=== PATIENT | female | born 1995 | race Caucasian/White ===

== ENCOUNTER 2017-06-04 07:00 | Inpatient (IN) | payer OTHER ==
[~2017-06-04 07:00] MED LIST: CITRIC ACID/SODIUM CITRATE 30 ML UNIT-DOSE CUP PO ONE; ELECTROLYTE-148 SOLN 500 ML IV ONE
[2017-06-04] MEDS ORDERED: ELECTROLYTE-148 SOLN 1,000 ML IV SCH (07:30)
[2017-06-04 08:10] VITALS: BMI 34.9
--- NOTE | 2017-06-04 09:10 | HP ---
Past Medical History - Primary Care Physician PCP:: Brittney Gomez - Admission Chief Complaint: 22 yrs , 39 .5/7 weeks, with previous c/section, IUGR suspected , requests for Repeat C/section History of Present Illness: PNC at [address] [place] [address]. Wt gain 24 lbs Work Up : O Pos, Hbsag neg, Rpr nr, Rubella pos, Quantiferon neg, Hiv neg, Lead neg ,Sickle neg ! hr [id number], , gC/Ct cultures neg, Gbs neg Pt was followed by MFM . Serial sonograms were done for growth . Last sono 05/28/17 38.4 days by early sono but 34.1 weeks by bpd, TANNER 6.6, EFw 5 '3" (2355 gm <10 % tile ) , Asymmetrical IUGR suspected, NSt reactive , BPP8/8. marginal cord insertion of placenta , Vx Repeat NST 06/03/17 reactive NT screen & Modified Sequential neg . Lo samantha & NT screen ( 5%) Obesity History Source: Patient, Medical Record Limitations to Obtaining History: No Limitations - Past Medical History LEAD COATER: No: Migraine, Seizure Cardiovascular: No: HTN, Murmur Pulmonary: No: Asthma Gastrointestinal: Yes: Constipation. No: Gastritis, GERD Hepatobiliary: No: Hepatitis A, Hepatitis B, Hepatitis C Renal/: Yes: UTI (during current ) ...: 3 ...Para: 1 (03/20/16 Primary c/section , 5'14" due to Distress [facility] ) ...Term: 1 ...: 0 ...Spon : 0 ...Induced : 1 (2013) ...Multiple Gestation: 0 ...LMP: 08/31/16 ... Weeks Gestation by Dates: 39.4 ...EDC by Dates: 06/07/17 ...EDC by Sono: 06/07/17 Heme/Onc: Yes: Anemia Infectious Disease: No: HIV, STD's, Tuberculosis Psych: No: Addictions, Anxiety, Bipolar, Depression, Panic, Psychosis, Schizophrenia Endocrine: No: Diabetes Mellitus, Hypothyroidism Additional Medical History: Injured left pinky, in splint - Past Surgical History Past Surgical History: Yes: (03/20/2016 primary c/section) Hx Myomectomy: No Hx Transabdominal Cerclage: No - Smoking History Smoking history: Never smoked Have you smoked in the past 12 months: No - Alcohol/Substance Use Hx Alcohol Use: No History of Substance Use: reports: None - Social History History of Recent Travel: No Home Medications - Allergies Allergies/Adverse Reactions: Allergies Allergy/AdvReac Type Severity Reaction Status Date / Time No Known Allergies Allergy Verified 06/04/17 08:13 - Home Medications Home Medications: Ambulatory Orders Ferrous Sulfate [Feosol] 325 mg PO DAILY 05/21/17 Vit/Iron Fumarate/FA [ Tablet] 1 each PO DAILY 05/21/17 Physical Exam - Maternity Vital Signs: Vital Signs Temperature 98.1 F 06/04/17 07:00 Pulse Rate 102 H 06/04/17 07:00 Respiratory Rate 18 06/04/17 07:00 Blood Pressure 126/73 06/04/17 07:00 O2 Sat by Pulse Oximetry (%) Selected Entries 06/04/17 07:00 Weight 210 lb Constitutional: Yes: Well Nourished, Obese Eyes: Yes: WNL HENT: Yes: WNL, Normocephalic Neck: Yes: WNL Cardiovascular: Yes: WNL, Regular Rate and Rhythm Lungs: Clear to auscultation Breast(s): Yes: WNL - Abdominal Exam/OB Fundal Height: 36 Number of Fetuses: Single Presentation: Vertex Contractions: Yes Regularity: Irregular Intensity: Unaware Monitor Mode: External Heart Rate (range): 140-150 Heart Rate Location: [facility] Category: I Accelerations: Uniform Decelerations: None - Vaginal Exam/OB Vaginal Bleediing: No Dilatation (cm): close Effacement (%): unefface Amniotic Membrane Status: Intact Presentation: Vertex/Position Station: -3 - Physical Exam Musculoskeletal: Yes: WNL Extremities: Yes: WNL. No: Calf Tenderness Edema: Yes Edema: LLE: 1+, RLE: 1+ Integumentary: Yes: Incision (pfannensteil old keloid type scar), Tattoos Deep Tendon Reflex Grade: Normal +2 ...Motor Strength: WNL Psychiatric: Yes: WNL, Alert, Oriented - Labs Lab Results: Laboratory Tests 03/20/16 03/20/16 06/03/17 11:05 11:05 16:20 WBC 10.3 H Hgb 12.8 D Hct 39.9 D Plt Count 176 D Neutrophils % 72.1 Lymphocytes % 20.6 Monocytes % 6.0 Eosinophils % 1.0 Basophils % 0.3 PT with INR INR PTT (Actin FS) 29.5 Sodium Potassium Chloride Carbon Dioxide BUN Creatinine Random Glucose Uric Acid 3.4 AST ALT 06/03/17 06/03/17 16:20 16:20 WBC Hgb Hct Plt Count Neutrophils % Lymphocytes % Monocytes % Eosinophils % Basophils % PT with INR 10.50 INR 0.93 PTT (Actin FS) Sodium 137 Potassium 4.6 Chloride 105 Carbon Dioxide 22 BUN 10 Creatinine 0.8 Random Glucose 130 H D Uric Acid AST 18 ALT 15 Hemorrhage Risk Assessment - Risk Factors Risk Score: 1 Risk Level: Medium Risk Problem List - Problems (1) with 39 completed weeks gestation Code(s): Z3A.39 - 39 WEEKS GESTATION OF (2) Previous section Code(s): Z98.891 - HISTORY OF UTERINE SCAR FROM PREVIOUS SURGERY (4) Obesity (BMI 30.0-34.9) Code(s): E66.9 - OBESITY, UNSPECIFIED Assessment/Plan 22 yrs , 39.5 weeks previous c/section , not in labor, IUGR ( asymmetrical suspected), , gbs neg , requests for Repeat c/section
[2017-06-04 10:50] LABS: VENOUS BLOOD GAS HCO3 23.1 meq/L (19-25); VENOUS PH 7.31 (7.32-7.42)
[2017-06-04] MEDS ORDERED: ONDANSETRON 4 MG/2 ML VIAL IVPUSH PRN (11:13)
[2017-06-04] MEDS: OXYTOCIN 20 UNITS in 0.9% NS 20 UNIT/1,000 ML INFUS.BAG IV SCH ×2 (11:15→18:30)
[2017-06-04] MEDS ORDERED: METHYLERGONOVINE MALEATE 0.2 MG/1 ML AMP IM PRN (11:19)
[2017-06-04] MEDS ORDERED: SENNOSIDES/DOCUSATE COMBO (SENNA PLUS) TABLET (UD) PO PRN (11:19)
[2017-06-04 11:23] LABS: ARTERIAL BLD GAS O2 SATURATION 23.9 % (90-98.9); ARTERIAL BLOOD GAS BASE EXCESS -2.2 meq/l (-2-2); ARTERIAL BLOOD GAS HCO3 25.5 meq/L (22-26); ARTERIAL BLOOD GAS pH 7.28 (7.35-7.45)
[2017-06-04 11:26] LABS: ARTERIAL BLOOD GAS PO2 16.1 mmHg (80-100)
--- NOTE | 2017-06-04 11:34 | PN ---
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 GBS neg Obese pt Intra op course uneventful . IV Ancef 2 gm prior to incision given
--- NOTE | 2017-06-04 11:41 | OP ---
Operative Note - Note: Operative Date: 06/04/17 Pre-Operative Diagnosis: 39.5 weeks , previous c/section , iUGR, obesity Operation: Repeat LFTC/Section Findings: 10.19 AM Baby Boy, Vx LOT position, 9/9, Wt 5'15" . AFluid clear Dr Karla Viveros Police Superintendent present in the room Both Tubes & ovaries normal . Skin scar keloid Intradermal Vlock suture taken for skin Surgeon: Brittney Gomez Well Testing Operator: Steve Donovan Anesthesiologist/HATCH TENDER: Master Marvin Anesthesia: Spinal Specimens Removed: Cord segment for cord blood gas. Cord blood sample. Placenta Estimated Blood Loss (mls): 500 Drains, Volume Out (mls): 100 (page out put , hillary color ) Fluid Volume Replaced (mls): 1,200 (Iv Ancef 2 gm ivpb prior to incision ) Operative Report Dictated: Yes
[2017-06-04] MEDS: IBUPROFEN 800 MG/8 ML IJ IVPB PRN ×2 (11:45→23:53)
[2017-06-04] MEDS: CEFAZOLIN 1 GM PUSH 1 GM/10 ML DISP.SYRIN IVPUSH SCH (17:11)
[2017-06-05] MEDS: CEFAZOLIN 1 GM PUSH 1 GM/10 ML DISP.SYRIN IVPUSH SCH ×2 (02:50→10:15)
[2017-06-05 08:29] LABS: BASOPHIL 0.4 % (0-2.0); EOSINOPHIL 0.9 % (0-4.5); MCH 24.7 pg (25.7-33.7); MCHC 31.9 g/dl (32.0-36.0); MEAN CELL VOLUME 77.4 fl (80-96); NEUTROPHILS 78.2 % (42.8-82.8); PLATELET COUNT 159 K/MM3 (134-434); RDW 16.1 % (11.6-15.6); WHITE BLOOD COUNT 11.7 K/mm3 (4.0-10.0)
--- NOTE | 2017-06-05 10:08 | OP ---
DATE OF OPERATION: 06/04/2017 PREOPERATIVE DIAGNOSIS: A 39.5-week , previous section, intrauterine growth restriction, obesity. OPERATION DONE: A repeat low flap transverse section. SURGEON: Brittney Gomez MD BOOT MAKER SURGEON: AVA Adams ANESTHESIOLOGIST: Master Marvin MD LITHOGRAPHIC PLATEMAKER: Jo Ann Viveros____ ANESTHESIA: Spinal. FINDINGS: This is a 22-year-old 3 para 1-0-1-1 at 39.5 weeks, not in labor, and suspected IUGR ,, vertex -3 to -4 station, and TANNER was 6.6.. Pt requests for a . PROCEDURE: Abdomen was shaved, prepped. Patient was taken to the operating room table. Spinal anesthesia was given. Glaser catheter was placed. Then, abdomen was painted and draped in the usual manner. Previous Pfannenstiel incision scar was a keloid, and the incision was made around that keloid, and the whole keloid throughout the length of the incision was excised and sent for pathology examination. Then, the scar tissue and subcutaneous tissue was incised transversely. Anterior rectus sheath was incised transversely. Bleeding points were clamped and cauterized. The rectus muscle was from the rectus sheath. The parietal peritoneum was opened vertically. Lower flap of the peritoneum was incised, and was incised transverse, and bladder was pushed down. Lower uterine segment was incised transversely. The amniotic fluid was clear, and the cord was just in front of the baby's neck. The baby was delivered at 10:19 a.m. from LOT position. was 9, 9. Baby's weight was 5 pounds 15 ounces. Cord was clamped and cut, and the baby was handed to the holistic specialist. Cord segment was given for the cord blood gases, and cord blood was collected. Placenta was removed completely with the membranes. Uterine cavity was clean. Then, the closure of the uterine incision was done in 2 layers. The first layer was a continuous locking with a Biosyn 0 suture, second layer was a continuous intermittently locking with a Biosyn 0 suture. Hemostasis was verified . Then , the bladder peritoneum also was closed with Biosyn 0 suture. Hemostasis was once again checked. Both tubes and ovaries were normal. Irrigation was done. Sponge, instrument, and needle counts were correct. The closure of the abdomen was done. Parietal peritoneum was closed with a Vicryl 0 suture. Muscles were approximated with a Vicryl 0 suture. Interrupted sutures were taken. Then, anterior rectus sheath was closed with a Vicryl 0 suture. Continuous sutures were taken. Hemostasis was checked in subcutaneous tissue. The subcutaneous tissue was approximated with 2-0 Vicryl suture, and the skin was approximated with 4-0 V-Loc suture by intradermal technique. Steri-Strips applied, pressure dressing given, blood clots were removed from the vagina, and patient was transferred to the recovery room in stable condition. Estimated blood loss was 500 mL, and her urine output was 100 mL intraoperatively. It was hillary color. She received 2 g of IV Ancef prior to the incision, and IV infusion was 1200 mL. Yany [id number] MTDD
[2017-06-05] MEDS: PRENATAL VITAMINS W/ FOLIC ACID TABLET (FP) PO SCH (10:15)
[2017-06-05] MEDS: ENOXAPARIN NA (PORCINE) 40 MG/0.4 ML DISP.SYRIN SQ SCH (10:15)
[2017-06-05] MEDS: SIMETHICONE 80 MG TAB.CHEW (FP) PO PRN ×3 (10:18→20:04)
[2017-06-05] MEDS: ACETAMINOPHEN 325 MG TABLET (FP) PO PRN ×2 (10:18→15:47)
[2017-06-05] MEDS: IBUPROFEN 600 MG TABLET (FP) PO PRN ×3 (10:18→20:04)
[2017-06-05] MEDS ORDERED: BISACODYL 10 MG SUPP.RECT RC PRN (11:19)
--- NOTE | 2017-06-05 14:23 | PN ---
Post Progress Note - Subjective Subjective: 22 yo Para 2 status post repeat , seen and evaluated. Doing well, she's out of bed to chair. Post Day: 1 Type of Delivery: Repeat C/S Vital Signs: Vital Signs Temperature 98.2 F 06/05/17 10:00 Pulse Rate 100 H 06/05/17 10:00 Respiratory Rate 20 06/05/17 10:39 Blood Pressure 115/69 06/05/17 10:00 O2 Sat by Pulse Oximetry (%) 100 06/04/17 12:10 Breast Exam: Yes: Soft Uterus: Yes: Fundus Firm Incision: Yes: Dressing dry and intact Abdomen/GI: Yes: Abdomen soft, Tolerating PO Lochia: Yes: Rubra Lochia, amount: Small Extremities: Yes: Calves non-tender Perineum: Yes: Intact Activity: Ambulating - Labs Labs: CBC WBC 11.7 K/mm3 (4.0-10.0) H 06/05/17 08:00 RBC 5.10 M/mm3 (3.60-5.2) 06/05/17 08:00 Hgb 12.6 GM/dL (10.7-15.3) 06/05/17 08:00 Hct 39.5 % (32.4-45.2) 06/05/17 08:00 MCV 77.4 fl (80-96) L 06/05/17 08:00 MCH 24.7 pg (25.7-33.7) L 06/05/17 08:00 MCHC 31.9 g/dl (32.0-36.0) L 06/05/17 08:00 RDW 16.1 % (11.6-15.6) H 06/05/17 08:00 Plt Count 159 K/MM3 (134-434) 06/05/17 08:00 MPV 10.0 fl (7.5-11.1) 06/05/17 08:00 Neutrophils % 78.2 % (42.8-82.8) 06/05/17 08:00 Lymphocytes % 12.0 % (8-40) D 06/05/17 08:00 Monocytes % 8.5 % (3.8-10.2) 06/05/17 08:00 Eosinophils % 0.9 % (0-4.5) 06/05/17 08:00 Basophils % 0.4 % (0-2.0) 06/05/17 08:00 Problem List - Problems (1) Status post repeat low transverse section Code(s): Z98.891 - HISTORY OF UTERINE SCAR FROM PREVIOUS SURGERY Assessment/Plan Status post repeat Stable Ambulation Analgesia as needed Continue routine post op care
--- NOTE | 2017-06-05 15:20 | DS ---
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 No: Distention, Vomiting ....Post : Yes: Uterus firm, Uterus non-tender, Moderate lochia rubra Breast(s): Yes: WNL Musculoskeletal: Yes: WNL Extremities: Yes: WNL. No: Calf Tenderness Edema: LLE: Trace, RLE: Trace Integumentary: Yes: Tattoos Wound/Incision: Yes: Clean/Dry, Well Approximated, Sutures Intact (intraderma sutures), Steri Strips, Open to air. No: Reddened, Bleeding, Excoriated Neurological: Yes: WNL, Alert, Oriented ...Motor Strength: WNL Psychiatric: Yes: WNL, Alert, Oriented Labs: CBC, BMP 06/05/17 08:00 Laboratory Tests 06/07/17 07:37 WBC 11.0 H Hgb 12.2 Hct 37.8 Plt Count 201 D Delivery - Delivery Section: Repeat, Low Flap Transverse (39 .5 weeks ,previous c/section IUGR) Type of Anesthesia: Spinal EBL (cc): 500 (page ouput 100 ml hillary color ) Delivery, Single - Stages of Labor Date of Delivery: 06/04/17 Time of Delivery: 10:19 Time Placenta Delivered: 10:20 Placenta: Yes: Manual Removal, Uterine Exploration - Condition of Nursing Scheduler/Design Lead Present: Yes Name: Felice Acosta Infant Gender: Male Weight: 5 lb 15 oz Position: Left, OT Total Hours ROM (Hrs/Mins): 2 minutes - 1 Minute Total Score: 9 5 Minutes Total Score: 9 - Feeding Plan Initial Plan: Elected not to breastfeed exclusively throughout hospitalization Remarks - Remarks Remarks: 22 yrs , previous c/s, IUGR suspected, requests for Repeat c/section PNC at [address] [place] [address] . GBS neg Obese pt Intra op course uneventful . IV Ancef 2 gm prior to incision given . post op course uneventful. she will rtc in 1 week for wound check post op course uneventful. discharge on 06/08/17 Discharge Summary Reason For Visit: CSECTION Current Active Problems IUGR (intrauterine growth restriction) (Acute) Obesity (BMI 30.0-34.9) (Acute) with 39 completed weeks gestation (Acute) Previous section (Acute) Status post repeat low transverse section (Acute) Condition: Stable - Instructions Diet, Activity, Other Instructions: Post Instructions DIET: Continue good diet high in protein, calcium, and iron rich foods. Drink at least eight (8) glasses of water daily in addition to other fluids. Regular diet MEDICATIONS: Continue vitamins and iron as previously directed. Motrin and Tylenol may be taken for minor discomfort. ACTIVITY: Mild to moderate exercise may be started in two (2) weeks. Take frequent rest periods. Resume normal activity after six (6) week check up. WOUND CARE OF OPERATIVE SITE: Continue use of perineal bottle until vaginal discharge stops. Keep area clean. Shower daily. Keep abdominal wound dry. Report any drainage or redness to physician. Tub baths, tampons and douches are not permitted for [address] Breast feeding & or Bottle feeding BREAST CARE: (For those that are not breast feeding): If engorgement occurs: Wear tight fitting bra. Take Tylenol or Motrin for pain. Apply cold packs (ice in bags to each breast ) FAMILY PLANNING: There are many control alternatives to pursue and they should be discussed at your first office visit. You may resume sexual activity after your six (6) week check up. (Remember, breast feeding is not a contraceptive) NEXT PHYSICIAN APPOINTMENT: Be certain to call for a one (1) week appointment, unless otherwise directed. Call Clinic or got to Emergency Dept if you have any of the following: Heavy vaginal bleeding Painful urination Leg pain Unusual odor noted to vaginal bleeding High fever Red streaking noted on breast Referrals: Brittney Gomez MD [Staff Physician] - Disposition: HOME - Home Medications Comprehensive Discharge Medication List: Ambulatory Orders Ferrous Sulfate [Feosol] 325 mg PO DAILY 05/21/17 Vit/Iron Fumarate/FA [ Tablet] 1 each PO DAILY 05/21/17 Acetaminophen [Tylenol .Regular Strength -] 500 mg PO Q4H PRN #30 tablet Ferrous Sulfate [Feosol] 325 mg PO BID ud 06/05/17 Ibuprofen [Motrin -] 600 mg PO Q4H PRN #30 tablet 06/05/17 Vitamins (Sjr) - 1 tab PO DAILY tablet 06/05/17
[2017-06-05] MEDS: oxyCODONE HCL 5 MG TABLET PO PRN (20:04)
[2017-06-05] MEDS: FERROUS SO4 325 MG TABLET (FP) PO SCH (22:25)
[2017-06-06] MEDS: IBUPROFEN 600 MG TABLET (FP) PO PRN ×3 (08:22→22:11)
[2017-06-06] MEDS: SIMETHICONE 80 MG TAB.CHEW (FP) PO PRN ×2 (08:22→22:11)
[2017-06-06] MEDS: oxyCODONE HCL 5 MG TABLET PO PRN ×3 (08:25→22:12)
--- NOTE | 2017-06-06 08:40 | PN ---
Progress Note (short form) - Note Progress Note: pod2 doing well, ambulating, passing gas CBC, BMP 06/05/17 08:00 Last Vital Signs Temp Pulse Resp BP Pulse Ox 97.8 F 92 H 18 105/53 100 06/05/17 22:00 06/05/17 22:00 06/05/17 22:00 06/05/17 22:00 06/04/17 12:10 abdomen soft, no distension, no cva incision dry. clean , healing well no calf tenderness lochia mild plan ambulate, cbc in am
[2017-06-06] MEDS: ENOXAPARIN NA (PORCINE) 40 MG/0.4 ML DISP.SYRIN SQ SCH (09:42)
[2017-06-06] MEDS: PRENATAL VITAMINS W/ FOLIC ACID TABLET (FP) PO SCH (09:42)
[2017-06-06] MEDS: FERROUS SO4 325 MG TABLET (FP) PO SCH ×2 (09:42→22:11)
[2017-06-07 08:11] LABS: BASOPHIL 0.5 % (0-2.0); EOSINOPHIL 2.8 % (0-4.5); MCH 25.4 pg (25.7-33.7); MCHC 32.4 g/dl (32.0-36.0); MEAN CELL VOLUME 78.6 fl (80-96); MEAN PLT VOLUME 10.5 fl (7.5-11.1); NEUTROPHILS 61.9 % (42.8-82.8); PLATELET COUNT 201 K/MM3 (134-434); RDW 16.5 % (11.6-15.6)
[2017-06-07] MEDS: oxyCODONE HCL 5 MG TABLET PO PRN ×2 (09:07→20:44)
[2017-06-07] MEDS: IBUPROFEN 600 MG TABLET (FP) PO PRN (09:08)
[2017-06-07] MEDS: FERROUS SO4 325 MG TABLET (FP) PO SCH ×2 (09:09→21:59)
[2017-06-07] MEDS: PRENATAL VITAMINS W/ FOLIC ACID TABLET (FP) PO SCH (09:09)
[2017-06-07] MEDS: SIMETHICONE 80 MG TAB.CHEW (FP) PO PRN (09:09)
[2017-06-07] MEDS: ENOXAPARIN NA (PORCINE) 40 MG/0.4 ML DISP.SYRIN SQ SCH (09:10)
--- NOTE | 2017-06-07 09:15 | PN ---
Progress Note (short form) - Note Progress Note: pod 3 , no c/o passing gas , voids ok CBC, BMP 06/07/17 07:37 Last Vital Signs Temp Pulse Resp BP Pulse Ox 98.7 F 102 H 20 110/60 100 06/06/17 21:24 06/06/17 21:24 06/06/17 21:24 06/06/17 21:24 06/04/17 12:10 abdomen soft, no distension, no cva incision dry, clean no calf tenderness plab ambulate , plan for d/c home in am
[2017-06-07] MEDS: ACETAMINOPHEN 325 MG TABLET (FP) PO PRN (20:43)
[2017-06-07 23:29] VITALS: TEMP 98.1
[2017-06-08] MEDS: SIMETHICONE 80 MG TAB.CHEW (FP) PO PRN ×2 (02:36→11:41)
[2017-06-08] MEDS: IBUPROFEN 600 MG TABLET (FP) PO PRN ×2 (02:36→11:39)
[2017-06-08] MEDS: oxyCODONE HCL 5 MG TABLET PO PRN (02:36)
[2017-06-08] MEDS: PRENATAL VITAMINS W/ FOLIC ACID TABLET (FP) PO SCH (10:00)
[2017-06-08] MEDS: ENOXAPARIN NA (PORCINE) 40 MG/0.4 ML DISP.SYRIN SQ SCH (10:01)
[2017-06-08] MEDS: FERROUS SO4 325 MG TABLET (FP) PO SCH (10:01)
[2017-06-08] MEDS: ACETAMINOPHEN 325 MG TABLET (FP) PO PRN (11:40)
[2017-06-08 12:18] VITALS: BP 123/71; PULSE 90
--- NOTE | 2017-06-08 12:59 | DS ---
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 Vital Signs: Vital Signs Temperature 98.1 F 06/08/17 08:40 Pulse Rate 90 06/08/17 08:40 Respiratory Rate 20 06/08/17 08:40 Blood Pressure 123/71 06/08/17 08:40 O2 Sat by Pulse Oximetry (%) 100 06/07/17 21:00 Constitutional: Yes: Well Nourished, No Distress, Calm Eyes: Yes: WNL, Conjunctiva Clear, EOM Intact HENT: Yes: WNL, Atraumatic, Normocephalic Neck: Yes: WNL, Supple, Trachea Midline Cardiovascular: Yes: WNL, Regular Rate and Rhythm Respiratory: Yes: WNL, Regular, CTA Bilaterally Gastrointestinal: Yes: WNL ...Rectal Exam: Yes: WNL Renal/: Yes: WNL ....Post : Yes: Uterus firm, Uterus non-tender, Slight lochia rubra Breast(s): Yes: WNL Musculoskeletal: Yes: WNL Extremities: Yes: WNL Edema: Yes Edema: LLE: Trace, RLE: Trace Integumentary: Yes: WNL Wound/Incision: Yes: Clean/Dry, Well Approximated, Conner Intact Neurological: Yes: WNL, Alert, Oriented ...Motor Strength: WNL Psychiatric: Yes: WNL, Alert, Oriented Labs: CBC, BMP 06/07/17 07:37 Delivery - Delivery Section: Repeat, Low Flap Transverse (39 .5 weeks ,previous c/section IUGR) Type of Anesthesia: Spinal EBL (cc): 500 (page ouput 100 ml hillary color ) Delivery, Single - Stages of Labor Date of Delivery: 06/04/17 Time of Delivery: 10:19 Time Placenta Delivered: 10:20 Placenta: Yes: Manual Removal, Uterine Exploration - Condition of Infant Rn Hospice/Tube Carrier Present: Yes Name: Felice Acosta Infant Gender: Male Weight: 5 lb 15 oz Position: Left, OT Total Hours ROM (Hrs/Mins): 2 minutes - 1 Minute Total Score: 9 5 Minutes Total Score: 9 - [place] Feeding Plan Initial Plan: Elected not to breastfeed exclusively throughout hospitalization Discharge Summary Reason For Visit: CSECTION Current Active Problems IUGR (intrauterine growth restriction) (Acute) Obesity (BMI 30.0-34.9) (Acute) with 39 completed weeks gestation (Acute) Previous section (Acute) Status post repeat low transverse section (Acute) Procedures: Principal: repeat LST c/s Condition: Stable - Instructions Diet, Activity, Other Instructions: Post Instructions DIET: Continue good diet high in protein, calcium, and iron rich foods. Drink at least eight (8) glasses of water daily in addition to other fluids. Regular diet MEDICATIONS: Continue vitamins and iron as previously directed. Motrin and Tylenol may be taken for minor discomfort. ACTIVITY: Mild to moderate exercise may be started in two (2) weeks. Take frequent rest periods. Resume normal activity after six (6) week check up. WOUND CARE OF OPERATIVE SITE: Continue use of perineal bottle until vaginal discharge stops. Keep area clean. Shower daily. Keep abdominal wound dry. Report any drainage or redness to physician. Tub baths, tampons and douches are not permitted for [address] Breast feeding & or Bottle feeding BREAST CARE: (For those that are not breast feeding): If engorgement occurs: Wear tight fitting bra. Take Tylenol or Motrin for pain. Apply cold packs (ice in bags to each breast ) FAMILY PLANNING: There are many control alternatives to pursue and they should be discussed at your first office visit. You may resume sexual activity after your six (6) week check up. (Remember, breast feeding is not a contraceptive) NEXT PHYSICIAN APPOINTMENT: Be certain to call for a one (1) week appointment, unless otherwise directed. Call Clinic or got to Emergency Dept if you have any of the following: Heavy vaginal bleeding Painful urination Leg pain Unusual odor noted to vaginal bleeding High fever Red streaking noted on breast Referrals: Brittney Gomez MD [Staff Physician] - Disposition: HOME - Home Medications Comprehensive Discharge Medication List: Ambulatory Orders Ferrous Sulfate [Feosol] 325 mg PO DAILY 05/21/17 Vit/Iron Fumarate/FA [ Tablet] 1 each PO DAILY 05/21/17 Acetaminophen [Tylenol .Regular Strength -] 500 mg PO Q4H PRN #30 tablet Ferrous Sulfate [Feosol] 325 mg PO BID ud 06/05/17 Ibuprofen [Motrin -] 600 mg PO Q4H PRN #30 tablet 06/05/17 Vitamins (Sjr) - 1 tab PO DAILY tablet 06/05/17
--- NOTE | 2017-06-08 13:01 | PN ---
Progress Note (short form) - Note Progress Note: pod 4 doing well, no c/o voids ok CBC, BMP 06/07/17 07:37 Last Vital Signs Temp Pulse Resp BP Pulse Ox 98.1 F 90 20 123/71 100 06/08/17 08:40 06/08/17 08:40 06/08/17 08:40 06/08/17 08:40 06/07/17 21:00 abdomen soft, no distension, no cva incision dry, clean no calf tendernes plan d/c home rtc 1 week
--- NOTE | 2017-06-11 13:54 | PATH ---
Surgical Pathology Report Patient Name: ADDISON GANDHI [facility]. Rec. 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 Specimen(s) Received A: OLD SCAR B: PLACENTA Clinical History , VTOP x1, 39.4 weeks gestation, previous Marginal cord insertion, SGA below 10%, TANNER 6.6 Final Diagnosis A. SKIN, OLD SCAR, EXCISION: SKIN WITH DERMAL SCAR. B. PLACENTA, DELIVERY: SMALL (373 GRAM) THIRD TRIMESTER PLACENTA WITH PARAMARGINALLY INSERTED THREE-VESSEL UMBILICAL CORD AND UNREMARKABLE PLACENTAL MEMBRANES. Electronically Signed Melquiades Olsen M.D. Gross Description A. Received in formalin labeled "old scar," is 11.5 x 0.8 cm brown, elongated portion of skin excised to depth of 1.2 cm. The epidermal surface displays a central, linear, well-healed scar. Plumber Pipe Fitting sections are submitted in one cassette. B. The specimen is received fresh labeled placenta and is a 373 gram, 12.0 x 10.5 x 4.5 cm. placenta with attached membranes and umbilical cord. The attached membranes are sandoval, translucent with focal opacities and insert marginally. The umbilical cord measures 15.5 cm. in length and averages 1.1 cm. in diameter. The cord inserts eccentrically, 1 cm. to the nearest margin. No true knots or strictures are identified. Cut surface of the umbilical cord reveals 3 vessels. The surface is bosch-blue with minimal fibrin deposition and appropriate caliber vessels. The maternal surface is red-brown and intact. Sectioning reveals red-brown, spongy parenchyma. No lesions are identified. Plumber Pipe Fitting sections are submitted in three cassettes as follows: 1- membrane rolls and umbilical cord; 2-3- full thickness sections of placenta. 06/09/201706/09/2017
== END 2017-06-08 13:30 | disposition home or self-care (01) | DRG 540 ==
LOC: JLDR 07:00 → J3W 12:45
PROVIDERS: ADMIT Obstetrics & Gynecology; ATTEND Obstetrics & Gynecology
PROC: 10D00Z1 Extraction of Products of Conception, Low, Open Approach (ICD-10-PCS; principal; 2017-06-04)
DX: O34.219 Maternal care for unspecified type scar from previous cesarean delivery (principal); O36.5930 Maternal care for other known or suspected poor fetal growth, third trimester, not applicable or unspecified; O99.214 Obesity complicating childbirth; E66.8 Other obesity; Z68.34 Body mass index [BMI] 34.0-34.9, adult; Z3A.39 39 weeks gestation of pregnancy; Z37.0 Single live birth
CPT/HCPCS: 36415; 36600; 82803; 85025; 88304-TC; 88307-TC

== ENCOUNTER 2018-04-26 18:27 | Emergency (ER) | payer OTHER ==
[2018-04-26 18:35] VITALS: BP 124/83; PULSE 98; TEMP 98.8; BMI 35.7
--- NOTE | 2018-04-26 20:48 | PDOC ---
History of Present Illness - General Chief Complaint: Pain Stated Complaint: SWELLING AND PAIN TO KNEE Time Seen by Provider: 04/26/18 20:38 History Source: Patient Exam Limitations: Clinical Condition - History of Present Illness Initial Comments: 04/26/18 20:42 Patient with no surgical past medication present with complain of pain and swelling to right knee status post twisted knee while trying to get into her car this morning. Patient reported increased pain with ambulation. Patient denies hitting knee or falling. Patient denies any other symptoms Timing/Duration: 4-6 hours Past History - Past Medical History Allergies/Adverse Reactions: Allergies Allergy/AdvReac Type Severity Reaction Status Date / Time No Known Allergies Allergy Verified 04/26/18 18:34 Home Medications: Ambulatory Orders Ferrous Sulfate [Feosol] 325 mg PO DAILY 05/21/17 Vit/Iron Fum/Folic AC [ Tablet] 1 each PO DAILY 05/21/17 Acetaminophen [Tylenol .Regular Strength -] 500 mg PO Q4H PRN #30 tablet Ferrous Sulfate [Feosol] 325 mg PO BID ud 06/05/17 Ibuprofen [Motrin -] 600 mg PO Q4H PRN #30 tablet 06/05/17 Vitamins (Sjr) - 1 tab PO DAILY tablet 06/05/17 Leg Brace [Knee Brace] 1 each MC DAILY #1 each 04/26/18 Naproxen 500 mg PO BID PRN #20 tablet 04/26/18 Asthma: No Cancer: No Cardiac Disorders: No COPD: No Diabetes: No HTN: No Seizures: No Thyroid Disease: No - Suicide/Smoking/Psychosocial Hx Smoking History: Never smoked Have you smoked in the past 12 months: No Hx Alcohol Use: No Drug/Substance Use Hx: No Substance Use Type: None Hx Substance Use Treatment: No Review of Systems - Review of Systems Able to Perform ROS?: Yes Is the patient limited Maori proficient: No Constitutional: No: Weakness Respiratory: No: Symptoms reported Cardiac (ROS): No: Symptoms Reported ABD/GI: No: Symptoms Reported Musculoskeletal: Yes: See HPI, Joint Pain (right knee), Muscle Pain (right knee) . No: Muscle Weakness All Other Systems: Reviewed and Negative *Physical Exam - Vital Signs Last Vital Signs Temp Pulse Resp BP Pulse Ox 98.8 F 98 H 18 124/83 99 04/26/18 18:32 04/26/18 18:32 04/26/18 18:32 04/26/18 18:32 04/26/18 18:32 - Physical Exam Comments: 04/26/18 20:46 GENERAL: Well developed, well nourished. Awake and alert. No acute distress. CARDIOVASCULAR: Regular rate and rhythm. No murmurs, rubs, or gallops. PULMONARY: No evidence of respiratory distress. Lungs clear to auscultation bilaterally. No wheezing, rales or rhonchi. ABDOMINAL: Soft. Non-tender. Non-distended. No rebound or guarding. No organomegaly. Normoactive bowel sounds MUSCULOSKELETAL : Moderate tenderness to medial collateral ligament. Mild tenderness to anterior patellar of right knee. Mild swelling to anterior infrapatellar region. No effusion of right knee. Negative anterior-posterior drawer tests of right knee. No bony deformities EXTREMITIES: No cyanosis. No clubbing. No edema. No calf tenderness. SKIN: Warm and dry. Normal capillary refill. No rashes. No jaundice. NEUROLOGICAL: Alert, awake, appropriate. No motor deficits in the lower extremities. Gait is normal without ataxia. PSYCHIATRIC: Cooperative. Good eye contact. Appropriate mood and affect. General Appearance: Yes: Nourished, Appropriately Dressed, Mild Distress ED Treatment Course - RADIOLOGY Radiology Studies Ordered: Category Date Time Status KNEE 3 POS-RIGHT [RAD] Stat Radiology 04/26/18 20:40 Ordered Medical Decision Making - Medical Decision Making 04/26/18 20:43 Patient with no significant past medical history present with complain of right knee pain status post twisted knee this morning. Patient reported increased pain with ambulation. Patient did not take anything for pain. Exams significant for moderate tenderness to medial collateral ligaments and anterior patellar. Mild swelling to anterior infrapatellar region. X-ray of right knee ordered. Treat based on the imaging results. 04/26/18 21:59 x-rays of right knee shows no acute pathology. symptoms likely knee strain. Patient will be discharged home on NSAIDS and knee brace with orthopedics follow -up as needed *DC/Admit/Observation/Transfer Diagnosis at time of Disposition: Strain of right knee Qualifiers: Encounter type: initial encounter Qualified Code(s): S86.911A - Strain of unspecified muscle(s) and tendon(s) at lower leg level, right leg, initial encounter - Discharge Dispostion Disposition: HOME Condition at time of disposition: Stable Decision to Admit order: No - Prescriptions Prescriptions: Leg Brace [Knee Brace] 1 each MC DAILY #1 each Naproxen 500 mg PO BID PRN #20 tablet PRN Reason: knee pain - Referrals Referrals: Ilya Renee MD [Staff Physician] - - Patient Instructions Printed Discharge Instructions: DI for Knee Pain, DI for Knee Sprain Additional Instructions: Your x-ray was normal. Take prescribed medication as needed for pain and wear prescribed knee brace daily until symptoms resolve. Follow up with preferred orthopedics if symptoms persist for more than 4 days. - Post Discharge Activity
[2018-04-26] MEDS ORDERED: IBUPROFEN 400 MG TABLET (FP) PO ONE ×2 (22:03→22:04)
== END 2018-04-26 22:07 | disposition home or self-care (01) ==
LOC: JERFT 18:27
DX: S86.811A Strain of other muscle(s) and tendon(s) at lower leg level, right leg, initial encounter (principal); V48.4XXA Person boarding or alighting a car injured in noncollision transport accident, initial encounter; Y92.488 Other paved roadways as the place of occurrence of the external cause; Y93.89 Activity, other specified; Y99.8 Other external cause status
CPT/HCPCS: 73562-TC-RT-FY; 99281-25

== ENCOUNTER 2023-05-14 17:25 | Emergency (ER) | payer OTHER ==
[2023-05-14 17:52] VITALS: BP 130/69; BMI 32.4
[2023-05-14] MEDS ORDERED: ACETAMINOPHEN 1000 MG/100 ML BAG IVPB ONE (18:21)
[2023-05-14] MEDS ORDERED: SODIUM CHLORIDE 1,000 ML IV STA (18:21)
[2023-05-14 19:35] LABS: BASO % 0.6 % (0-2.0); EOS % 3.9 % (0-4.5); HEMATOCRIT 38.8 % (32.4-45.2); HEMOGLOBIN 12.6 GM/dL (10.7-15.3); MCH 25.3 pg (25.7-33.7); MCHC 32.6 g/dl (32.0-36.0); MEAN CELL VOLUME 77.7 fl (80-96); MEAN PLT VOLUME 9.5 fl (7.5-11.1); MONO % 11.3 % (3.8-10.2); NEUT % 51.2 % (42.8-82.8); PLATELET COUNT 258 10^3/uL (134-434); RBC 4.99 M/mm3 (3.60-5.2); RDW 16.9 % (11.6-15.6); WHITE BLOOD COUNT 8.1 K/mm3 (4.0-10.0)
[2023-05-14 19:39] LABS: EPI CELLS >36 /uL (0-25.1); HYALINE CASTS 1 /uL (0-3.1); URINE APPEARANCE TURBID; URINE BACTERIA 2671 /uL (0-1359); URINE BILIRUBIN NEGATIVE (NEGATIVE); URINE COLOR YELLOW; URINE GLUCOSE (UA) NEGATIVE (NEGATIVE); URINE KETONE NEGATIVE (NEGATIVE); URINE LEUK ESTERASE 1+ (NEGATIVE); URINE NITRITE NEGATIVE (NEGATIVE); URINE PROTEIN NEGATIVE (NEGATIVE); URINE RBC 8 /uL (0-23.9); URINE UROBILINOGEN 0.2 mg/dL (0.2-1.0); URINE WBC 46 /uL (0-25.8)
[2023-05-14] MEDS ORDERED: KETOROLAC TROMETHAMINE 30 MG/1 ML VIAL IVPUSH ONE (19:51)
[2023-05-14] MEDS ORDERED: KETOROLAC TROMETHAMINE 30 MG/1 ML VIAL ONE (19:55)
[2023-05-14 20:01] LABS: POTASSIUM 4.3 mmol/L (3.5-5.1)
[2023-05-14] MEDS ORDERED: NITROFURANTOIN MONOHYD/M-CRYST 100 MG CAPSULE PO STA (20:01)
[2023-05-14] MEDS ORDERED: NITROFURANTOIN MACROCRYSTAL 50 MG CAPSULE (FP) ONE (20:06)
[2023-05-14 20:08] LABS: BILIRUBIN,TOTAL 0.2 mg/dL (0.2-1); CREATININE 0.9 mg/dL (0.55-1.3)
[2023-05-14 20:09] LABS: TOT PROT 7.6 g/dl (6.4-8.2)
[2023-05-14 20:11] LABS: ALBUMIN 3.5 g/dl (3.4-5.0)
[2023-05-14 20:12] LABS: BLOOD UREA NITROGEN 14.2 mg/dL (7-18); MAGNESIUM 1.9 mg/dL (1.8-2.4)
[2023-05-14 20:47] VITALS: PULSE 78; RESP 17; TEMP 98.1
== END 2023-05-14 20:47 | disposition home or self-care (01) ==
LOC: JER 17:25
PROC: 3E0333Z Introduction of Anti-inflammatory into Peripheral Vein, Percutaneous Approach (ICD-10-PCS; principal; 2023-05-14)
PROC: 3E0337Z Introduction of Electrolytic and Water Balance Substance into Peripheral Vein, Percutaneous Approach (ICD-10-PCS; 2023-05-14)
DX: R10.84 Generalized abdominal pain (principal); R51.9 Headache, unspecified; R35.0 Frequency of micturition; R39.15 Urgency of urination; N30.00 Acute cystitis without hematuria; Z20.822 Contact with and (suspected) exposure to COVID-19
CPT/HCPCS: 0241U-QW; 36415; 80053; 81003; 83735; 84703; 85025; 87086; 87186; 99284-25

== ENCOUNTER 2023-07-08 13:44 | Observation (INO) | payer OTHER ==
[2023-07-08] MEDS ORDERED: KETOROLAC TROMETHAMINE 30 MG/1 ML VIAL IVPUSH ONE (17:26)
[2023-07-08] MEDS ORDERED: SODIUM CHLORIDE 0.9% 500 ML INFUS.BAG IV ONE (17:26)
[2023-07-08] MEDS ORDERED: KETOROLAC TROMETHAMINE 30 MG/1 ML VIAL ONE (17:30)
[2023-07-08] MEDS ORDERED: morphine CARPU-JECT 2 MG/1 ML DISP.SYRIN IVPUSH ONE (17:36)
[2023-07-08] MEDS ORDERED: AZITHROMYCIN IVPB 500 MG in DEXTROSE 5%-WATER - 250 ML IVPB ONE (22:01)
[2023-07-08] MEDS ORDERED: CEFTRIAXONE 1 GM in DEXTROSE 5%-WATER - 100 ML IVPB ONE (22:01)
[2023-07-08] MEDS ORDERED: CEFTRIAXONE 1 GM/50 ML BAG ONE (22:04)
[2023-07-08] MEDS ORDERED: AZITHROMYCIN IVPB 500 MG/250 ML BAG IVPB ONE (22:05)
[2023-07-08] MEDS ORDERED: KETOROLAC TROMETHAMINE 15 MG/ML VIAL IM PRN (23:50)
[2023-07-09 00:09] LABS: HEMATOCRIT 30.2 % (32.4-45.2); HEMOGLOBIN 9.5 GM/dL (10.7-15.3); MCH 25.5 pg (25.7-33.7); MCHC 31.4 g/dl (32.0-36.0); MEAN CELL VOLUME 81.3 fl (80-96); MEAN PLT VOLUME 9.9 fl (7.5-11.1); PLATELET COUNT 186 10^3/uL (134-434); RBC 3.72 M/mm3 (3.60-5.2); RDW 16.3 % (11.6-15.6); WHITE BLOOD COUNT 7.4 K/mm3 (4.0-10.0)
[2023-07-09 00:29] LABS: POTASSIUM 4.1 mmol/L (3.5-5.1)
[2023-07-09 00:31] LABS: CALCIUM 8.8 mg/dL (8.5-10.1)
[2023-07-09 00:32] LABS: ALBUMIN 3.3 g/dl (3.4-5.0); BLOOD UREA NITROGEN 9.7 mg/dL (7-18)
[2023-07-09 00:35] LABS: CREATININE 0.8 mg/dL (0.55-1.3)
[2023-07-09 00:36] LABS: BILIRUBIN,TOTAL 0.2 mg/dL (0.2-1); TOT PROT 6.9 g/dl (6.4-8.2)
[2023-07-09] MEDS: SODIUM CHLORIDE 1,000 ML IV SCH (01:11)
[2023-07-09 01:12] LABS: RETICULOCYTES 0.81 % (0.5-1.5)
[2023-07-09 05:32] LABS: CHLORIDE 120 mmol/L (98-107); POTASSIUM 3.1 mmol/L (3.5-5.1); SODIUM 145 mmol/L (136-145)
[2023-07-09 05:35] LABS: ANION GAP 6 mmol/L (4-13); BLOOD UREA NITROGEN 6.4 mg/dL (7-18); CO2 19 mmol/L (21-32); GLUCOSE,RANDOM 67 mg/dL (74-106)
[2023-07-09 05:37] LABS: SGPT/ALT 13 U/L (13-61)
[2023-07-09 05:38] LABS: CREATININE 0.5 mg/dL (0.55-1.3); SGOT/AST 7 U/L (15-37)
[2023-07-09 05:40] LABS: BILIRUBIN,TOTAL 0.2 mg/dL (0.2-1); HEMATOCRIT 33.1 % (32.4-45.2); HEMOGLOBIN 10.5 GM/dL (10.7-15.3); MCH 25.7 pg (25.7-33.7); MCHC 31.8 g/dl (32.0-36.0); MEAN CELL VOLUME 80.9 fl (80-96); MEAN PLT VOLUME 10.3 fl (7.5-11.1); PLATELET COUNT 191 10^3/uL (134-434); RBC 4.09 M/mm3 (3.60-5.2); WHITE BLOOD COUNT 7.6 K/mm3 (4.0-10.0)
[2023-07-09 05:56] LABS: ALBUMIN 2.2 g/dl (3.4-5.0); ALK PHOS 65 U/L (45-117); CALCIUM 6.3 mg/dL (8.5-10.1); TOT PROT 4.8 g/dl (6.4-8.2)
[2023-07-09] MEDS ORDERED: POTASSIUM CHLORIDE ORAL LIQUID 20 MEQ/15 ML PO ONE (06:00)
[2023-07-09] MEDS ORDERED: ACETAMINOPHEN INJECTION 100 ML IVPB ONE ×2 (06:00→11:56)
[2023-07-09] MEDS: ACETAMINOPHEN 1000 MG/100 ML BAG IVPB PRN ×3 (06:04→17:49)
[2023-07-09] MEDS ORDERED: CALCIUM GLUC IN NACL, ISO-OSM 1 GM/50 ML BAG IVPB ONE ×2 (08:17→08:27)
[2023-07-09] MEDS ORDERED: KCL 10 MEQ IVPB 10 MEQ/100 ML INFUS.BAG IVPB ONE (08:27)
[2023-07-09] MEDS ORDERED: POTASSIUM CHLORIDE TABS 20 MEQ TABLET.ER (FP) PO ONE (08:27)
[2023-07-09] MEDS ORDERED: KCL 10 MEQ IVPB 10 MEQ/100 ML INFUS.BAG IVPB SCH (08:30)
[2023-07-09] MEDS: POTASSIUM CHLORIDE TABS 20 MEQ TABLET.ER (FP) PO SCH ×2 (08:36→10:17)
[2023-07-09] MEDS ORDERED: ENOXAPARIN NA (PORCINE) 40 MG/0.4 ML DISP.SYRIN SQ SCH (10:00)
[2023-07-09] MEDS ORDERED: IRON SUCROSE INJECTION 200 MG in SODIUM CHLORIDE 90 ML IVPB ONE (12:00)
[2023-07-09 12:08] LABS: BASO % 0.7 % (0-2.0); HEMOGLOBIN 11.5 GM/dL (10.7-15.3); LYMPH % 27.5 % (8-40); MCH 25.8 pg (25.7-33.7); MEAN CELL VOLUME 80.7 fl (80-96); MEAN PLT VOLUME 9.7 fl (7.5-11.1); MONO % 10.3 % (3.8-10.2); NEUT % 58.5 % (42.8-82.8); PLATELET COUNT 205 10^3/uL (134-434); RBC 4.46 M/mm3 (3.60-5.2); RDW 16.1 % (11.6-15.6); WHITE BLOOD COUNT 7.2 K/mm3 (4.0-10.0)
[2023-07-09 12:48] LABS: POTASSIUM 4.6 mmol/L (3.5-5.1)
[2023-07-09 12:51] LABS: MAGNESIUM 1.8 mg/dL (1.8-2.4)
[2023-07-09 12:54] LABS: CREATININE 0.8 mg/dL (0.55-1.3)
[2023-07-09 12:59] LABS: CALCIUM 8.7 mg/dL (8.5-10.1)
[2023-07-09] MEDS: CALCIUM CARBONATE 650 MG TABLET PO SCH (13:01)
[2023-07-09 20:29] VITALS: BMI 34.7
[2023-07-09] MEDS: CEFTRIAXONE 1 GM in DEXTROSE 5%-WATER - 50 ML IVPB SCH (21:22)
[2023-07-10] MEDS: SODIUM CHLORIDE 1,000 ML IV SCH (00:50)
[2023-07-10] MEDS: ACETAMINOPHEN 1000 MG/100 ML BAG IVPB PRN ×3 (05:39→20:56)
[2023-07-10] MEDS: CALCIUM CARBONATE 650 MG TABLET PO SCH (10:49)
[2023-07-10] MEDS: CEFTRIAXONE 1 GM in DEXTROSE 5%-WATER - 50 ML IVPB SCH (22:06)
[2023-07-11] MEDS: SODIUM CHLORIDE 1,000 ML IV SCH (01:14)
[2023-07-11] MEDS: ACETAMINOPHEN 1000 MG/100 ML BAG IVPB PRN (09:08)
[2023-07-11] MEDS: CALCIUM CARBONATE 650 MG TABLET PO SCH (09:08)
[2023-07-11 10:01] LABS: BASO % 0.7 % (0-2.0); EOS % 4.2 % (0-4.5); HEMATOCRIT 35.5 % (32.4-45.2); HEMOGLOBIN 11.3 GM/dL (10.7-15.3); LYMPH % 21.7 % (8-40); MCH 25.8 pg (25.7-33.7); MCHC 31.9 g/dl (32.0-36.0); MEAN CELL VOLUME 81.1 fl (80-96); MEAN PLT VOLUME 9.9 fl (7.5-11.1); MONO % 11.7 % (3.8-10.2); NEUT % 61.7 % (42.8-82.8); PLATELET COUNT 202 10^3/uL (134-434); RBC 4.38 M/mm3 (3.60-5.2); RDW 16.2 % (11.6-15.6); WHITE BLOOD COUNT 6.6 K/mm3 (4.0-10.0)
[2023-07-11 10:19] LABS: POTASSIUM 4.1 mmol/L (3.5-5.1)
[2023-07-11 10:31] LABS: BLOOD UREA NITROGEN 6.9 mg/dL (7-18); CALCIUM 9.1 mg/dL (8.5-10.1)
[2023-07-11 10:34] LABS: CREATININE 0.7 mg/dL (0.55-1.3)
[2023-07-11 15:23] VITALS: BP 113/71; PULSE 85; RESP 20; TEMP 98.2
[2023-07-11] MEDS: SUCRALFATE 1 GM TABLET (FP) PO SCH ×2 (15:26→17:13)
[2023-07-11] MEDS ORDERED: METHOCARBAMOL 500 MG TABLET PO ONE (15:30)
== END 2023-07-11 17:45 | disposition home or self-care (01) ==
LOC: JERFT 13:44 → INTOOBSV 22:15 → JERBED 22:15 → UNDOADMOB 22:15 → JERBED 23:48 → UNDOADMOB 23:48 → OBSVTOIN 07-09 11:32 → UNDOADMOB 07-09 11:32 → JERBED 07-09 11:32 → INTOOBSV 07-09 11:32 → J7W 07-09 17:25 → JERBED 07-09 17:25
PROVIDERS: ADMIT Internal Medicine; ATTEND Nurse Practitioner
PROC: 3E033NZ Introduction of Analgesics, Hypnotics, Sedatives into Peripheral Vein, Percutaneous Approach (ICD-10-PCS; principal; 2023-07-09)
PROC: 3E03329 Introduction of Other Anti-infective into Peripheral Vein, Percutaneous Approach (ICD-10-PCS; 2023-07-09)
PROC: 3E0337Z Introduction of Electrolytic and Water Balance Substance into Peripheral Vein, Percutaneous Approach (ICD-10-PCS; 2023-07-09)
PROC: 3E033GC Introduction of Other Therapeutic Substance into Peripheral Vein, Percutaneous Approach (ICD-10-PCS; 2023-07-09)
PROC: 3E0333Z Introduction of Anti-inflammatory into Peripheral Vein, Percutaneous Approach (ICD-10-PCS; 2023-07-09)
PROC: 0DB98ZX Excision of Duodenum, Via Natural or Artificial Opening Endoscopic, Diagnostic (ICD-10-PCS; 2023-07-11)
PROC: 0DB78ZX Excision of Stomach, Pylorus, Via Natural or Artificial Opening Endoscopic, Diagnostic (ICD-10-PCS; 2023-07-11)
PROC: 0DB68ZX Excision of Stomach, Via Natural or Artificial Opening Endoscopic, Diagnostic (ICD-10-PCS; 2023-07-11)
DX: J18.9 Pneumonia, unspecified organism (principal); N39.0 Urinary tract infection, site not specified; E87.6 Hypokalemia; D64.9 Anemia, unspecified; R10.13 Epigastric pain; R10.31 Right lower quadrant pain; R10.11 Right upper quadrant pain; Z87.440 Personal history of urinary (tract) infections
CPT/HCPCS: 0241U-QW; 36415; 71275-TC; 74177-TC; 76705-TC; 76830-TC; 76856-TC; 78226-TC; 80048; 80053; 81003; 82310; 82728; 83540; 83550; 83690; 83735; 84703; 85025; 85027; 85045; 87040; 87086; 87186; 88305-TC; 96361; 96365; 96367; 96375; 99282-25; 99285-25; A9537; G0378; J1756; Q9967